=== PATIENT | male | born 1975 | race African-American/Black ===

== ENCOUNTER 2017-12-12 04:59 | Emergency (ER) | payer OTHER ==
[~2017-12-12] VITALS: Ht 170.2 cm; Wt 68.0 kg
[2017-12-12] MEDS ORDERED: PENICILLIN V P500 MG PO (05:15)
[2017-12-12] MEDS ORDERED: Magic Mouthwash (05:15)
[2017-12-12] MEDS ORDERED: IBUPROFEN 800800 MG PO (05:15)
[2017-12-12] MEDS ORDERED: HYDROCODON-ACE1 EAC7 PO (05:15)
[2017-12-12 05:36] VITALS: BP 148/99
== END 2017-12-12 05:37 | disposition home or self-care (01) ==
LOC: M.ERS 04:59
DX: K02.9 Dental caries, unspecified (principal); K05.6 Periodontal disease, unspecified

== ENCOUNTER 2018-01-16 15:57 | Emergency (ER) | payer OTHER ==
[~2018-01-16] VITALS: Ht 175.3 cm; Wt 68.0 kg
[~2018-01-16 15:57] MED LIST: HYDROCODON-ACE1 EAC7 PO; IBUPROFEN 800800 MG PO; Magic Mouthwash; PENICILLIN V P500 MG PO
[2018-01-16 16:30] LABS: URINE BILIRUBIN NEGATIVE (Negative); URINE BLOOD 1+ (Negative); URINE CLARITY CLEAR; URINE COLOR YELLOW; URINE GLUCOSE-RANDOM NEGATIVE (Negative); URINE KETONES NEGATIVE (Negative); URINE LEUKOCYTES-REFLEX NEGATIVE (Negative); URINE NITRITE-REFLEX NEGATIVE (Negative); URINE PROTEIN NEGATIVE (Negative); URINE SPECIFIC GRAVITY 1.025 (1.005-1.030); URINE UROBILINOGEN 0.2 E.U./dl (0.2-1.0)
[2018-01-16 16:31] LABS: ABSOLUTE BASOPHILS 0.1 thou/uL (0.0-0.2); ABSOLUTE LYMPHOCYTES 1.7 thou/uL (0.8-5.3); ABSOLUTE MONOCYTES 0.6 thou/uL (0.0-1.2); ABSOLUTE NEUTROPHILS 6.1 thou/uL (1.6-8.1); BASOPHILS 0.7 %; EOSINOPHILS 0.3 %; HEMATOCRIT 46.2 % (42.0-52.0); HEMOGLOBIN 15.7 gm/dL (14.0-18.0); LYMPHOCYTES 19.8 %; MCH 31.4 pg (26.0-34.0); MCV 92.5 fL (80.0-100.0); MONOCYTES 7.1 %; NUCLEATED RBCS 0 /100WBC; PLATELET COUNT* 272 thou/uL (150-400); POLYS 72.1 %; RBC 4.99 mil/uL (4.50-6.00); RDW-CV 13.2 % (10.5-14.5); WBC 8.4 thou/uL (4.0-11.0)
[2018-01-16 16:41] LABS: CALCIUM 8.7 mg/dL (8.5-10.1); CREATININE 1.1 mg/dL (0.6-1.3); POTASSIUM 3.6 mmol/L (3.5-5.1)
[2018-01-16 16:43] LABS: APTT 29.7 Seconds (25.0-31.3); INR 1.1
[2018-01-16 16:43] LABS: CRYSTALS None Seen /LPF (None Seen); HYALINE CASTS 0-3 Few /LPF (None Seen); MUCUS None Seen strn/LPF (None Seen); SQUAMOUS NONE SEEN /LPF (0-3)
[2018-01-16 16:44] LABS: BACTERIA-REFLEX None Seen /HPF (None Seen); URINE WBC-REFLEX 0-5 Rare /HPF (0-5)
[2018-01-16 16:45] LABS: URINE RBC 0-2 Rare /HPF (0-2)
[2018-01-16 16:46] LABS: ALBUMIN 4.1 g/dL (3.4-5.0); TOTAL BILIRUBIN 1.1 mg/dL (<0.1-1.0); TOTAL PROTEIN 7.8 g/dL (6.4-8.2)
[2018-01-16 17:15] LABS: INFLUENZA A ANTIGEN None Detected (None Detect); INFLUENZA B ANTIGEN None Detected (None Detect)
[2018-01-16 17:36] VITALS: BP 150/99
== END 2018-01-16 17:37 | disposition home or self-care (01) ==
LOC: M.ERS 15:57
PROVIDERS: Nurse Practitioner Family
DX: B34.9 Viral infection, unspecified (principal); R53.83 Other fatigue; F17.210 Nicotine dependence, cigarettes, uncomplicated